=== PATIENT | male | born 1945 | race Caucasian/White ===

== ENCOUNTER 2017-05-09 19:32 | Emergency (ER) | payer MEDICARE, BC ==
--- NOTE | 2017-05-09 20:12 | EDM.PDOC ---
ED HPI GENERAL MEDICAL PROBLEM - General Stated Complaint: FISH HOOK Time Seen by Provider: 05/09/17 19:40 Source of Information: Reports: Patient History Limitations: Reports: No Limitations - History of Present Illness INITIAL COMMENTS - FREE TEXT/NARRATIVE: Patient is a 72 year old man who got a fish hook caught in his right index finger at 16:40 today on [place]. He cannot get it out and needs it removed. Onset: Today Onset Date: 05/09/17 Onset Time: 16:40 Duration: Hour(s): (3) Location: Reports: Upper Extremity, Right Quality: Reports: Sharp Severity: Mild Improves with: Reports: None Worsens with: Reports: None Context: Reports: Activity (Fishing) Associated Symptoms: Reports: No Other Symptoms Review of Systems - Review of Systems Review Of Systems: See Below Constitutional: Reports: No Symptoms Eyes: Reports: No Symptoms Ears: Reports: No Symptoms Nose: Reports: No Symptoms Mouth/Throat: Reports: No Symptoms Respiratory: Reports: No Symptoms Cardiovascular: Reports: No Symptoms GI/Abdominal: Reports: No Symptoms Genitourinary: Reports: No Symptoms Musculoskeletal: Reports: No Symptoms Skin: Reports: No Symptoms Neurological: Reports: No Symptoms Psychiatric: Reports: No Symptoms ED EXAM, GENERAL - Physical Exam Exam: See Below Exam Limited By: No Limitations General Appearance: Alert, WD/WN, No Apparent Distress Nose: Normal Inspection, Normal Mucosa, No Blood Throat/Mouth: Normal Inspection Head: Atraumatic, Normocephalic Neck: Normal Inspection, Supple, Non-Tender, Full Range of Motion Respiratory/Chest: No Respiratory Distress, Lungs Clear, Normal Breath Sounds, No Accessory Muscle Use, Chest Non-Tender Cardiovascular: Normal Peripheral Pulses, Regular Rate, Rhythm, No Edema, No Gallop, No JVD, No Murmur, No Rub Extremities: Other (He has a small fish hook in the end of his right index finger.) Neurological: Alert, Oriented, CN II-XII Intact, Normal Cognition, Normal Gait, Normal Reflexes, No Motor/Sensory Deficits ED TRAUMA EXTREMITY PROCEDURES - Additional/Other Procedure(s) Other (Free Text) Procedure(s): After sterile prep with betadine x 3, I used 2 ml of 1% lidocaine to numb the end of the right index finger. I then easily pulled the hook out with a mosquito forcep. Course - Vital Signs Text/Narrative:: Uneventful ED course. After the fish hook was removed, I gave him a tetanus shot and he was put on Cephalexin 500 mg po bid x 10 days. He will return to ED or his PCP if any problems ariise. Departure - Departure Time of Disposition: 20:19 Disposition: Home, Self-Care 01 Condition: Good Clinical Impression: Fish hook injury of finger - Discharge Information Instructions: How to Change Your Dressing, Puncture Wound
[2017-05-09] MEDS ORDERED: Cephalexin 500 MG Cap ONE (20:45)
[2017-05-09 20:51] VITALS: BP 139/75
[2017-05-09] MEDS ORDERED: Diphtheria/Tetanus Toxoids,Adult (Td) 0.5 ML SDV IM ONE (20:58)
== END 2017-05-09 20:51 | disposition home or self-care (01) ==
LOC: LB.ED 19:32 → MERGE 19:32 → LB.ED 20:51
DX: S60.450A Superficial foreign body of right index finger, initial encounter (principal); Z23 Encounter for immunization; W45.8XXA Other foreign body or object entering through skin, initial encounter
CPT/HCPCS: 90471; 90714; 99283; A9270

== ENCOUNTER 2018-04-17 13:45 | Emergency (ER) | payer MEDICARE, BC ==
[2018-04-17 14:34] VITALS: BP 147/95
[2018-04-17] MEDS ORDERED: predniSONE 10 MG Tab ONE (15:00)
--- NOTE | 2018-04-17 22:45 | ER ---
DATE OF SERVICE: 04/17/2018 HPI: This 73-year-old gentleman is complaining of progressive redness, pain, warmth, and swelling of his right thumb. No fever, chills, nausea, or vomiting. He states it began in the in the first metacarpal joint and then progressed to include his finger and the palm and his thenar eminence. PHYSICAL EXAMINATION: Diminished range of motion of the thumb due to pain, warm and tender to touch. LABS: Uric acid is 9.1. ASSESSMENT: Gout. PLAN: High-dose prednisone 20 mg b.i.d. for 5 days. I instructed him to fast from red meat in his diet for the next 10 days and then to when he adds it, to go no more than 4 g of protein a day. I asked him to follow up with his primary doctor and visit if symptoms return or worsen while doing. TEJINDER/OSCAR /[id number] ALEXIA
== END 2018-04-17 15:15 | disposition home or self-care (01) ==
LOC: LB.ED 13:45
DX: M10.9 Gout, unspecified (principal)
CPT/HCPCS: 36415; 84550; 85025; 99283; A9270

== ENCOUNTER 2018-04-20 15:21 | Emergency (ER) | payer MEDICARE, BC ==
--- NOTE | 2018-04-20 18:21 | ER ---
HPI: A 73-year-old male who came in by ambulance in full code. [place] He did not feel good. He sat down outside. Then he developed chest pain and passed out. CPR was started almost immediately at approximately 3:15. En route to the hospital, the patient started to have a lot of blood coming from his mouth with compressions. Upon arriving at the emergency room, initial evaluation revealed the patient's pupils were dilated and fixed. A pulse was unable to be found. But with compressions, you could then feel a pulse. He had been shocked 3 or 4 times before arriving at the emergency room. Upon arriving here, I intubated the patient immediately and an IO site was obtained in the left lower leg and he was given epinephrine 1 mg. This did produce a PEA rhythm which only lasted for 2 or 3 minutes. CPR was continued for 2 minutes after which it did show a VFib on one occasion. This did require shock. He was given 1 shock here and then CPR was immediately resumed. He was given 2 doses of epinephrine and CPR was ongoing until just after 4 p.m., at which point, he had no appreciable rhythm and the return to vendor showed asystole. In a mutual decision with the [facility] crew, who happened to be here as well as Dr. Florez, who was here assisting, it was determined to call the code. CAUSE OF : MI. TOM/OSCAR /[id number] ALEXIA
== END 2018-04-20 16:04 | disposition expired ==
LOC: EEVIPCON 15:21 → LB.ED 15:21
DX: I21.9 Acute myocardial infarction, unspecified (principal)
CPT/HCPCS: 92950; 99285-25; A0425; A0429